=== PATIENT | female | born 1995 | race Caucasian/White ===

== ENCOUNTER 2024-10-05 09:09 | Outpatient (RCR) | payer OTHER, SELFPAY ==
--- NOTE | 2024-10-05 12:58 | PC.NURSE ---
In- 0900 Out- 09 Reason for visit: Questions about latch/ History: Yahaira is a mother who delivered by section on 09/08/24 to baby michaela Darby. Yahaira had an uncomplicated and delivery. History: Marcos Darby was delivered full term without complications. Wilner lost 11% of his weight during his hospital stay after and was sent home being supplemented with formula in addition to Yahaira's pumped breast milk. Yahaira has since been able to pump an adequate amount of breast milk to discontinue supplementation with formula. Ria primary MD is aware of this plan of care. Wilner has now surpassed his weight and is gaining appropriately. Output is WNL. Observations: Yahaira was able to position marcos Darby in the cradle position and obtain an appropriate latch independently. Her visit today was to observe her latch to assure that is latched correctly. She denies any pain with initial latch and throughout feeding. She was able to switch infant to the right breast in football position after approximately 15 minutes. Yahaira voiced that she did not have support before her discharge from [facility]. Infants suck swallow ratio is 2-3:1. After nursing was completed, marcos jennings displayed signs of satisfaction. Pre-feed weight: 4378g 9lb 10.4oz Post-feed weight: 4473g 9lb 13.7oz Plan of Care: Mother will feed at the breast more frequently and will only pump to relieve discomfort. Follow up plans: guide given to mother for reading resources once she is home. contact information provided if further support is needed. Follow up with marcos Rollins primary doctor as scheduled. RN will follow up by telephone in 48 hours.
--- NOTE | 2024-10-09 14:31 | NBADM ---
1438. Called Yahaira for follow up from her outpatient appointment on 10/07. Yahaira reports she is continuing to breastfeed infant at the breast and pump after to completely empty the breasts. We discussed oversupply and she reports she does think she is an overproducer. We discussed some of the things she can do to decrease supply so she doesn't have to pump after each feeding. She reports she is going back to work soon, so she is very comfortable with pumping and feeding. She reports she has no questions or concerns at this time, but was encouraged to call the phone number with future needs.
== END 2025-01-03 23:59 | disposition home or self-care (01) ==
LOC: ANHOBOP 09:09
PROVIDERS: Visit Provider Pediatrics
DX: Z39.1 Encounter for care and examination of lactating mother (principal)
CPT/HCPCS: 99212; G0463